=== PATIENT | male | born 1955 | race Caucasian/White ===

== ENCOUNTER 2017-10-29 02:45 | Emergency (ER) | payer SELFPAY ==
[2017-10-29] MEDS ORDERED: Sodium Chloride 0.9% 10 ML Syringe FLUSH PRN (03:10)
[2017-10-29] MEDS ORDERED: Diltiazem 25 MG/5 ML SDV IVPUSH ONE ×2 (03:12→03:27)
[2017-10-29] MEDS ORDERED: Diltiazem 25 MG/5 ML SDV ONE (03:28)
[2017-10-29] MEDS ORDERED: Sodium Chloride 0.9% 1,000 ML IV ONE (03:42)
[2017-10-29] MEDS ORDERED: Diltiazem 100 MG in Sodium Chloride 0.9% 100 ML IV SCH (03:45)
[2017-10-29] MEDS ORDERED: Heparin Sodium/D5W 25,000 UNITS/500 ML BAG IV SCH (04:00)
[2017-10-29] MEDS ORDERED: Heparin Sodium 5,000 Units/ML Vial ONE (04:02)
[2017-10-29] MEDS ORDERED: Heparin Sodium 5,000 Units/ML Vial IVPUSH ONE (04:05)
--- NOTE | 2017-10-29 04:05 | EDM.PDOC ---
ED HPI GENERAL MEDICAL PROBLEM - General Chief Complaint: Cardiovascular Problem Stated Complaint: Shortness of Breath Time Seen by Provider: 10/29/17 03:08 Source of Information: Reports: Patient, Family History Limitations: Reports: No Limitations - History of Present Illness INITIAL COMMENTS - FREE TEXT/NARRATIVE: Pt SOB for past week. Worse with exertion Has also felt hot at times No fever No cough No travel or trauma No hx/o same in past No medical problems No chest pain No N/V/D Onset: Gradual Duration: Day(s): Location: Reports: Chest Worsens with: Reports: Movement Associated Symptoms: Reports: Shortness of Breath Back Pain Score (Numeric/FACES): 5 - Related Data Allergies Allergy/AdvReac Type Severity Reaction Status Date / Time No Known Allergies Allergy Verified 10/29/17 02:53 Home Meds: Home Meds Multivitamin with Minerals [Multiple Vitamin] 1 tab PO DAILY 10/29/17 [History] Naproxen Sodium [Aleve] 220 mg PO ASDIRECTED PRN 10/29/17 [History] ED ROS GENERAL - Review of Systems Review Of Systems: See Below Constitutional: Reports: No Symptoms Respiratory: Reports: Shortness of Breath Cardiovascular: Reports: No Symptoms GI/Abdominal: Reports: No Symptoms Musculoskeletal: Reports: No Symptoms ED EXAM, GENERAL - Physical Exam Exam: See Below Exam Limited By: No Limitations General Appearance: Mild Distress Throat/Mouth: Normal Oropharynx Neck: Supple Respiratory/Chest: Lungs Clear, Normal Breath Sounds Cardiovascular: Tachycardia GI/Abdominal: Soft, Non-Tender Extremities: Normal Inspection EKG INTERPRETATION Rhythm: A-Fib Course - Vital Signs Last Recorded V/S: Last Vital Signs Temp Pulse 97 10/29/17 03:56 Resp 22 H 10/29/17 03:56 BP 139/99 H 10/29/17 03:56 Pulse Ox 95 10/29/17 03:56 - Orders/Labs/Meds Orders: Active Orders 24 hr Category Date Time Status EKG Documentation Completion [RC] ASDIRECTED Care 10/29/17 03:10 Active EKG Documentation Completion [RC] ASDIRECTED Care 10/29/17 03:27 Active EKG Documentation Completion [RC] ASDIRECTED Care 10/29/17 03:35 Active EKG Documentation Completion [RC] ASDIRECTED Care 10/29/17 03:46 Active Chest 1V Frontal [CR] Stat Exams 10/29/17 03:09 Ordered D-DIMER QUANTITATIVE [COAG] Stat Lab 10/29/17 03:52 Ordered INR,PT,PROTHROMBIN TIME [COAG] Stat Lab 10/29/17 03:53 Ordered Diltiazem [Cardizem] 100 mg Med 10/29/17 03:45 Active Sodium Chloride 0.9% [Normal Saline] 100 ml IV TITRATE Heparin Sodium/D5W [Heparin 25,000 Units in D5W 500 ML] Med 10/29/17 04:00 Active 25,000 units in 500 ml IV TITRATE Sodium Chloride 0.9% [Normal Saline] 1,000 ml Med 10/29/17 03:42 Active IV .BOLUS Sodium Chloride 0.9% [Saline Flush] Med 10/29/17 03:10 Active 10 ml FLUSH ASDIRECTED PRN Saline Lock Insert [OM.PC] Routine Oth 10/29/17 03:10 Ordered EKG 12 Lead [EK] Routine Ther 10/29/17 03:09 Ordered EKG 12 Lead [EK] Routine Ther 10/29/17 03:26 Ordered EKG 12 Lead [EK] Routine Ther 10/29/17 03:35 Ordered EKG 12 Lead [EK] Routine Ther 10/29/17 03:46 Ordered Medication Orders Diltiazem HCl 100 mg/ Sodium (Chloride) 100 mls @ 5 mls/hr IV TITRATE PEBBLES; Protocol Last Admin: 10/29/17 03:39 Dose: 10 mg/hr, 10 mls/hr Sodium Chloride (Normal Saline) 1,000 mls @ 999 mls/hr IV .BOLUS ONE Stop: 10/29/17 04:42 Last Admin: 10/29/17 03:43 Dose: 999 mls/hr Heparin Sodium/Dextrose (Heparin 25,000 Units In D5w 500 Ml) 25,000 units in 500 mls @ 29.393 mls/hr IV TITRATE PEBBLES; Protocol Sodium Chloride (Saline Flush) 10 ml FLUSH ASDIRECTED PRN PRN Reason: Keep Vein Open Labs: Laboratory Tests 10/29/17 10/29/17 Range/Units 03:00 03:00 WBC 7.0 (4.0-10.2) K/uL RBC 5.24 (4.33-5.41) M/uL Hgb 15.6 (13.1-16.8) g/dL Hct 47.5 (39.0-49.0) % MCV 90.6 (84.0-98.0) fL MCH 29.8 (28.2-33.3) pg MCHC 32.8 (31.7-36.0) g/dL RDW 14.9 H (11.2-14.1) % Plt Count 168 (150-350) K/uL Neut % (Auto) 76.0 (45.0-80.0) % Lymph % (Auto) 16.6 (10.0-50.0) % [place] % (Auto) 6.0 (2.0-14.0) % Eos % (Auto) 1.3 (0.0-5.0) % Baso % (Auto) 0.1 (0.0-2.0) % Neut # (Auto) 5.35 (1.40-7.00) K/uL Lymph # (Auto) 1.17 (0.50-3.50) K/uL [place] # (Auto) 0.42 (0.00-1.00) K/uL Eos # (Auto) 0.09 (0.00-0.50) K/uL Baso # (Auto) 0.01 (0.00-0.20) K/uL Sodium 139 (136-145) mmol/L Potassium 4.7 (3.5-5.1) mmol/L Chloride 105 (98-107) mmol/L Carbon Dioxide 22.2 (21.0-32.0) mmol/L BUN 21 H (7-18) mg/dL Creatinine 1.71 H (0.51-1.17) mg/dL Est Cr Clr Drug Dosing 49.79 mL/min Estimated GFR (MDRD) 41 mL/min Glucose 110 H (74-106) mg/dL Calcium 9.1 (8.5-10.1) mg/dL Total Bilirubin 1.0 (0.2-1.0) mg/dL AST 28 (15-37) U/L ALT 48 (12-78) U/L Alkaline Phosphatase 104 (46-116) IU/L Troponin I 0.065 H* (0.000-0.056) ng/mL Total Protein 7.8 (6.4-8.2) g/dL Albumin 4.0 (3.4-5.0) g/dL Meds: Medications Generic Name Dose Route Start Last Admin Trade Name Freq PRN Reason Stop Dose Admin Diltiazem HCl 100 mg/ Sodium 100 mls @ 5 mls/hr 10/29/17 03:45 10/29/17 03:39 Chloride IV 10 mg/hr TITRATE PEBBLES 10 mls/hr Administration Protocol 5 MG/HR Sodium Chloride 1,000 mls @ 999 mls/hr 10/29/17 03:42 10/29/17 03:43 Normal Saline IV 10/29/17 04:42 999 mls/hr .BOLUS ONE Administration Heparin Sodium/Dextrose 25,000 units in 500 mls @ 29.393 mls/hr 10/29/17 04: 00 Heparin 25,000 Units In D5w 500 Ml IV TITRATE PEBBLES Protocol 12 UNITS/KG/HR Sodium Chloride 10 ml 10/29/17 03:10 Saline Flush FLUSH ASDIRECTED PRN Keep Vein Open Discontinued Medications Generic Name Dose Route Start Last Admin Trade Name Freq PRN Reason Stop Dose Admin Diltiazem HCl 25 mg 10/29/17 03:12 10/29/17 03:15 Diltiazem IVPUSH 10/29/17 03:13 25 mg ONETIME ONE Administration Diltiazem HCl 25 mg 10/29/17 03:27 10/29/17 03:28 Diltiazem IVPUSH 10/29/17 03:28 25 mg ONETIME ONE Administration Diltiazem HCl Confirm 10/29/17 03:28 10/29/17 03:35 Diltiazem Administered 10/29/17 03:29 Not Given Dose 25 mg .ROUTE .STK-MED ONE - Re-Assessments/Exams Free Text/Narrative Re-Assessment/Exam: 10/29/17 04:01 Pt in tachycardia. Pt given Cardizem 25 mg IV X 1 and noted to be in A. flutter with rate 130's Pt given 2nd dose Cardizem 25 mg IV and noted to have rate 95 in A. flutter Started on Cardizem drip at 10 mg/hr and noted to be in sinus rhythm D/W Dr Francois On-call hospitalist [facility] Pt now started on Heparin drip per recommendation Dr Francois Pt BP 130/90 Troponin noted to be elevated at 0.065 Departure - Departure Time of Disposition: 04:30 Disposition: DC/Tfer to Acute Hospital 02 Reason for Transfer *Q: Primary PCI Indicated Clinical Impression: Tachycardia, Elevated troponin Referrals: PCP,None [Primary Care Provider] - Forms: ED Department Discharge, Interfacility Transfer VAN ED Communication - ED Communication Date/Time Date: 10/29/17 Time Called: 04:00 - Discussed Case With (1) Discussed Case With (1): Admitting Provider - My Orders Last 24 Hours: My Active Orders 10/29/17 03:09 Chest 1V Frontal [CR] Stat EKG 12 Lead [EK] Routine 10/29/17 03:10 EKG Documentation Completion [RC] ASDIRECTED Sodium Chloride 0.9% [Saline Flush] 10 ml FLUSH ASDIRECTED PRN Saline Lock Insert [OM.PC] Routine 10/29/17 03:26 EKG 12 Lead [EK] Routine 10/29/17 03:27 EKG Documentation Completion [RC] ASDIRECTED 10/29/17 03:35 EKG Documentation Completion [RC] ASDIRECTED EKG 12 Lead [EK] Routine 10/29/17 03:42 Sodium Chloride 0.9% [Normal Saline] 1,000 ml IV .BOLUS 10/29/17 03:45 Diltiazem [Cardizem] 100 mg Sodium Chloride 0.9% [Normal Saline] 100 ml IV TITRATE 10/29/17 03:46 EKG Documentation Completion [RC] ASDIRECTED EKG 12 Lead [EK] Routine 10/29/17 03:52 D-DIMER QUANTITATIVE [COAG] Stat 10/29/17 03:53 INR,PT,PROTHROMBIN TIME [COAG] Stat 10/29/17 04:00 Heparin Sodium/D5W [Heparin 25,000 Units in D5W 500 ML] 25,000 units in 500 ml IV TITRATE - Assessment/Plan Last 24 Hours: My Active Orders 10/29/17 03:09 Chest 1V Frontal [CR] Stat EKG 12 Lead [EK] Routine 10/29/17 03:10 EKG Documentation Completion [RC] ASDIRECTED Sodium Chloride 0.9% [Saline Flush] 10 ml FLUSH ASDIRECTED PRN Saline Lock Insert [OM.PC] Routine 10/29/17 03:26 EKG 12 Lead [EK] Routine 10/29/17 03:27 EKG Documentation Completion [RC] ASDIRECTED 10/29/17 03:35 EKG Documentation Completion [RC] ASDIRECTED EKG 12 Lead [EK] Routine 10/29/17 03:42 Sodium Chloride 0.9% [Normal Saline] 1,000 ml IV .BOLUS 10/29/17 03:45 Diltiazem [Cardizem] 100 mg Sodium Chloride 0.9% [Normal Saline] 100 ml IV TITRATE 10/29/17 03:46 EKG Documentation Completion [RC] ASDIRECTED EKG 12 Lead [EK] Routine 10/29/17 03:52 D-DIMER QUANTITATIVE [COAG] Stat 10/29/17 03:53 INR,PT,PROTHROMBIN TIME [COAG] Stat 10/29/17 04:00 Heparin Sodium/D5W [Heparin 25,000 Units in D5W 500 ML] 25,000 units in 500 ml IV TITRATE
== END 2017-10-29 04:15 ==
LOC: LL.ED 02:45
DX: R00.0 Tachycardia, unspecified (principal); R79.89 Other specified abnormal findings of blood chemistry
CPT/HCPCS: 36415; 80053; 84484; 85025; 85379; 85610; 93005; 96365; 96374; 96375; 96376; 99285; J1644; J3490; J7030; J7050

== ENCOUNTER 2021-04-25 18:48 | Emergency (ER) | payer MEDICARE, BC ==
[2021-04-25] MEDS ORDERED: Bupivacaine 0.5% 10 ML SDV INJECT ONE (19:02)
[2021-04-25] MEDS ORDERED: Lidocaine 1% 5 ML VIAL INJECT ONE (19:02)
[2021-04-25] MEDS ORDERED: oxyCODONE ER 10 MG TAB.ER PO ONE (20:56)
[2021-04-25] MEDS ORDERED: Cephalexin 250 MG Cap PO ONE (20:58)
== END 2021-04-25 21:30 | disposition home or self-care (01) ==
LOC: LL.ED 18:48
DX: S61.012A Laceration without foreign body of left thumb without damage to nail, initial encounter (principal); I48.91 Unspecified atrial fibrillation; K21.9 Gastro-esophageal reflux disease without esophagitis; M19.90 Unspecified osteoarthritis, unspecified site; Z79.82 Long term (current) use of aspirin; Z79.01 Long term (current) use of anticoagulants; W23.0XXA Caught, crushed, jammed, or pinched between moving objects, initial encounter
CPT/HCPCS: 12002; 73140-FA; 99283; 99283-25; A9270-GY; J3490